=== PATIENT | male | born 1970 | race Caucasian/White ===

== ENCOUNTER 2022-04-28 18:07 | Emergency (ER) | payer BC ==
[~2022-04-28] VITALS: Ht 177 cm; Wt 74.0 kg
[2022-04-28] MEDS ORDERED: fentaNYL INJ 100 MCG/2 ML AMP IVP ONE (18:30)
[2022-04-28] MEDS ORDERED: LIDOCAINE 1% INJ 20 ML VIAL INJ ONE (18:30)
[2022-04-28] MEDS ORDERED: NS IV 1000 ML 1,000 ML IV SCH ×2 (18:30→20:00)
[2022-04-28 18:38] LABS: BASOPHILS % (AUTO) 0 % (0-10); EOSINOPHILS % (AUTO) 0 % (0-10); HEMATOCRIT 45 % (40-54); HEMOGLOBIN 15.9 g/dL (13.3-17.7); LYMPHOCYTES # (AUTO) 0.7 10^3/uL (1.0-4.0); LYMPHOCYTES % (AUTO) 9 % (12-44); MEAN CORPUSCULAR HEMOGLOBIN 31 pg (25-34); MEAN CORPUSCULAR HGB CONC 35 g/dL (32-36); MEAN CORPUSCULAR VOLUME 89 fL (80-99); MEAN PLATELET VOLUME 9.7 fL (9.0-12.2); MONOCYTES # (AUTO) 0.8 10^3/uL (0.0-1.0); MONOCYTES % (AUTO) 10 % (0-12); NEUTROPHILS # (AUTO) 6.5 10^3/uL (1.8-7.8); NEUTROPHILS % (AUTO) 81 % (42-75); PLATELET COUNT 216 10^3/uL (130-400)
[2022-04-28] MEDS ORDERED: SODIUM BICARB 8.4% 50 MEQ/50 ML (ABBOTT) SYR INJ ONE (18:45)
[2022-04-28 18:59] LABS: ALBUMIN 4.1 GM/DL (3.2-4.5)
[2022-04-28 19:00] LABS: POTASSIUM 5.1 MMOL/L (3.6-5.0)
[2022-04-28 19:01] LABS: CALCIUM 8.8 MG/DL (8.5-10.1)
[2022-04-28 19:02] LABS: TOTAL PROTEIN 7.4 GM/DL (6.4-8.2)
[2022-04-28 19:04] LABS: BILIRUBIN,TOTAL 0.7 MG/DL (0.1-1.0)
[2022-04-28 19:05] LABS: CREATININE SERUM 1.14 MG/DL (0.60-1.30)
[2022-04-28 19:08] LABS: MAGNESIUM 1.7 MG/DL (1.6-2.4)
[2022-04-28] MEDS ORDERED: ceFAZolin INJECTION 2,000 MG in NS (IVPB) 50 ML IV ONE (19:45)
--- NOTE | 2022-04-28 21:45 | Diagnostic Imaging Report ---
PROCEDURE: CT head, face, and cervical spine without contrast. TECHNIQUE: Multiple contiguous axial images were obtained through the head, neck, and facial bones without the use of intravenous contrast. Sagittal and coronal reformations through the cervical spine and facial bones were also performed. Auto Exposure Controls were utilized during the CT exam to meet ALARA standards for radiation dose reduction. INDICATION: Trauma, fall, pain, laceration. COMPARISON: None available. FINDINGS: No intracranial hemorrhage. No intracranial mass, mass effect, midline shift, herniation, hydrocephalus or extra-axial fluid collection. No CT evidence of an acute ischemic infarction. The orbits are unremarkable. Subcutaneous fat stranding with associated soft tissue gas is noted superior to the left ear. Mucosal thickening within the bilateral maxillary sinuses. Scattered mucosal thickening and fluid within the scattered ethmoidal air cells. The mastoid air cells are clear. The calvarium is intact. Mucosal thickening and fluid within scattered ethmoidal air cells. Mucosal thickening and fluid within the left sphenoid sinus. Mild mucosal thickening within the bilateral maxillary sinuses. The zygomatic arches are intact. No temporomandibular joint dislocation. The pterygoids are intact. No acute facial fracture. The orbits are unremarkable. Periventricular fat is symmetrically well-maintained. No focal fluid collection. The airway is patent. [place] left curvature of the visualized cervicothoracic spine. No significant anterolisthesis or retrolisthesis. Alignment of the atlantooccipital joint is well maintained. Vertebral body heights are well-maintained. No acute fracture or dislocation. No destructive osseous process. No severe disc space height loss. No apical pneumothorax. The paraspinal soft tissues are unremarkable. IMPRESSION: No acute intracranial abnormality. Laceration involving the left temporal scalp superior to the left ear. Paranasal sinus disease without acute facial fracture. No acute osseous abnormality within the cervical spine with curvature of the spine and low-grade degenerative changes present. Dictated by: Dictated on workstation # [id number]
[2022-04-28] MEDS ORDERED: RX-OSELTAMIVIR 75 MG (TAMIFLU) BOX OF 10 PO STA (21:49)
[2022-04-28] MEDS ORDERED: HYDROcodone/APAP 5 MG/325 MG (LORTAB) TAB PO ONE (22:00)
[2022-04-28] MEDS ORDERED: ONDANSETRON 4 MG/2 ML (SDV) Z0FRAN IVP ONE (22:00)
[2022-04-28] MEDS ORDERED: TRIM/SULFAMETH 160/800 (SEPTRA DS) TAB PO ONE (22:00)
[2022-04-28] MEDS ORDERED: MUPIROCIN 2% OINT 22 GM (BACTROBAN) TUBE ONE (22:00)
[2022-04-28] MEDS ORDERED: TETANUS,DIPTH,PERTUSS P/F (BOOSTRIX) 0.5 ML VIAL IM ONE (22:00)
[2022-04-28 22:45] VITALS: BP 128/68
[2022-04-28] MEDS ORDERED: ACHD5005 PO (22:52)
[2022-04-28] MEDS ORDERED: CEPH500T PO (22:52)
[2022-04-28] MEDS ORDERED: SULF1TAB38 PO (22:52)
[2022-04-28] MEDS ORDERED: ONDA4TAB11 SL (22:58)
--- NOTE | 2022-04-28 22:58 | ED General ---
General Chief Complaint: Dizziness/Syncope Stated Complaint: FALL/EAR LAC Nursing Triage Note: ARRIVED VIA AMB TO ROOM 03. STATES HE PASSED OUT AFTER HIS SHOWER CAUSING A LACERATION TO HIS LEFT EAR. WHEN HE GOT UP HE PASSED OUT AGAIN. DENIES NECK PAIN. PT STATES HE HAS BEEN SICK WITH RESP ISSUES RECENTLY. Source of Information: Patient Exam Limitations: No Limitations History of Present Illness Date Seen by Provider: Apr 28, 2022 Time Seen by Provider: 18:15 Initial Comments This 52-year-old gentleman presents to the emergency room with primary complaint of partial left ear amputation after he struck his head on a vanity when he had a syncopal episode getting out of the shower. He has not felt well the past 3 days, complaining of cough, congestion, and diarrhea. He is a type I diabetic but reports blood sugars have been fairly well controlled. He was not hypoglycemic today. He does not have any prior history of syncopal episodes. He denies shortness of breath or chest pain. He has been lightheaded. The top half of his left ear is dangling by a thin piece of tissue. Allergies and Home Medications Allergies Coded Allergies: No Known Drug Allergies (Unverified , 04/28/22) Patient Home Medication List Home Medication List Reviewed: Yes Cephalexin (Cephalexin) 500 Mg Tablet, 500 MG PO TID Prescribed by: PIERRE PADRON on 04/28/222251 Hydrocodone/Acetaminophen (Hydrocodone-Acetamin 5-325 mg) 5 Mg-325 Mg Tablet, 1 TAB PO Q4H PRN for PAIN-MODERATE (5-7) Prescribed by: PIERRE PADRON on 04/28/222252 Ondansetron (Ondansetron Odt) 4 Mg Tab.rapdis, 4 MG SL Q4H PRN for NAUSEA/VOMITING Prescribed by: PIERRE PADRON on 04/28/222257 Sulfamethoxazole/Trimethoprim (Bactrim Ds Tablet) 1 Each Tablet, 1 EACH PO BID Prescribed by: PIERRE PADRON on 04/28/222251 Review of Systems Review of Systems Constitutional: weakness EENTM: see HPI Respiratory: no symptoms reported Cardiovascular: see HPI, syncope Gastrointestinal: see HPI, diarrhea Genitourinary: no symptoms reported Musculoskeletal: no symptoms reported Skin: see HPI Psychiatric/Neurological: See HPI Hematologic/Lymphatic: No Symptoms Reported Immunological/Allergic: no symptoms reported Past Rfmaspa-Hwvglm-Cvmxjl Hx Patient Social History Tobacco Use?: No Substance use?: No Alcohol Use?: No Immunizations Up To Date Second COVID19 Vaccination Moises: UNKNOWN COVID19 Vaccine 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 oz. kg; 23.00 BMI Method: General Appearance: WD/WN, Mild Distress HEENT: PERRL/EOMI, Other (Contusions and abrasions on the left face especially in the periorbital region. Near complete amputation of the top half of the left ear. The bulk of the amputated tissue is cyanotic and tissue is denuded of skin. The more proximal portion of the amputated tissue appears pink. There is minor oozing of blood.) Neck: Normal Inspection, Non Tender Respiratory: Lungs Clear, Normal Breath Sounds, No Accessory Muscle Use Cardiovascular: Regular Rate, Rhythm, No Edema, No Murmur Gastrointestinal: Non Tender, Soft Extremity: Normal Inspection, No Pedal Edema Neurologic/Psychiatric: Alert, Oriented x3, No Motor/Sensory Deficits, Normal Mood/Affect, body sander II-XII Norm as Tested Skin: Normal Color, Warm/Dry Procedures/Interventions Wound Location: Ears Other Wound Location Left area near complete amputation Wound Length (cm): 9 Wound's Depth, Shape: irregular, flap (Through cartilage), contused tissue, sub Q Wound Explored: clean Irrigated w/ Saline (ccs): 300 Betadine Prep?: Yes Anesthesia: 1% Lidocaine Volume Anesthetic (ccs): 10 Suture: Vicryl Suture Size: 3-0 Number of Sutures: 10 Sterile Dressing Applied?: Yes Progress Wound was sprayed with lidocaine. Digital block was injected around the ear. Wound was then irrigated with saline and chlorhexidine and then rinsed with saline. The large nonviable flap of tissue was trimmed away. Skin was prepped with iodine. The thin strip of skin and subcutaneous tissue remaining was tacked down to the lower ear using 3-0 Vicryl suture. Bleeding was controlled. Tissue appeared to remain viable. All exposed cartilage was covered. Bactroban ointment was applied to the wound before dressing. Progress/Results/Core Measures Suspected Sepsis SIRS Temperature: Pulse: 94 Respiratory Rate: 16 Laboratory Tests 04/28/22 18:30: White Blood Count 8.0 Blood Pressure 137 /92 Mean: 107 Laboratory Tests 04/28/22 18:30: Creatinine 1.14, Platelet Count 216, Total Bilirubin 0.7 Results/Orders Lab Results Laboratory Tests Test 04/28/22 18:17 04/28/22 18:30 04/28/22 18:36 Range/Units Glucometer 228 H 70-110 MG/DL White Blood Count 8.0 4.3-11.0 10^3/uL Red Blood Count 5.11 4.30-5.52 10^6/uL Hemoglobin 15.9 13.3-17.7 g/dL Hematocrit 45 40-54 % Mean Corpuscular Volume 89 80-99 fL Mean Corpuscular Hemoglobin 31 25-34 pg Mean Corpuscular Hemoglobin Concent 35 32-36 g/dL Red Cell Distribution Width 12.1 10.0-14.5 % Platelet Count 216 130-400 10^3/uL Mean Platelet Volume 9.7 9.0-12.2 fL Immature Granulocyte % (Auto) 0 % Neutrophils (%) (Auto) 81 H 42-75 % Lymphocytes (%) (Auto) 9 L 12-44 % Monocytes (%) (Auto) 10 0-12 % Eosinophils (%) (Auto) 0 0-10 % Basophils (%) (Auto) 0 0-10 % Neutrophils # (Auto) 6.5 1.8-7.8 10^3/uL Lymphocytes # (Auto) 0.7 L 1.0-4.0 10^3/uL Monocytes # (Auto) 0.8 0.0-1.0 10^3/uL Eosinophils # (Auto) 0.0 0.0-0.3 10^3/uL Basophils # (Auto) 0.0 0.0-0.1 10^3/uL Immature Granulocyte # (Auto) 0.0 0.0-0.1 10^3/uL Sodium Level 129 L 135-145 MMOL/L Potassium Level 5.1 H 3.6-5.0 MMOL/L Chloride Level 93 L 98-107 MMOL/L Carbon Dioxide Level 22 21-32 MMOL/L Anion Gap 14 5-14 MMOL/L Blood Urea Nitrogen 14 7-18 MG/DL Creatinine 1.14 0.60-1.30 MG/DL Estimat Glomerular Filtration Rate 78 BUN/Creatinine Ratio 12 Glucose Level 267 H 70-105 MG/DL Calcium Level 8.8 8.5-10.1 MG/DL Corrected Calcium 8.7 8.5-10.1 MG/DL Magnesium Level 1.7 1.6-2.4 MG/DL Total Bilirubin 0.7 0.1-1.0 MG/DL Aspartate Amino Transf (AST/SGOT) 31 5-34 U/L Alanine Aminotransferase (ALT/SGPT) 21 0-55 U/L Alkaline Phosphatase 71 40-136 U/L Total Protein 7.4 6.4-8.2 GM/DL Albumin 4.1 3.2-4.5 GM/DL Influenza Type A (RT-PCR) Detected H Not Detecte Influenza Type B (RT-PCR) Not Detected Not Detecte SARS-CoV-2 RNA (RT-PCR) Not Detected Not Detecte My Orders Orders - PIERRE CHAMPION MD Lidocaine 1% Inj 20 Ml (Xylocaine 1% Inj (04/28/22 18:30) Cbc With Automated Diff (04/28/22 18:20) Comprehensive Metabolic Panel (04/28/22 18:20) Magnesium (04/28/22 18:20) Ed Iv/Invasive Line Start (04/28/22 18:20) Ekg Tracing (04/28/22 18:20) Monitor-Rhythm Ecg Trace Only (04/28/22 18:20) Ns Iv 1000 Ml (Sodium Chloride 0.9%) (04/28/22 18:30) Covid 19 Inhouse Test (04/28/22 18:20) Influenza A And B By Pcr (04/28/22 18:20) Ct Head/Face/Cervical Wo (04/28/22 18:26) Fentanyl Inj (Sublimaze Injection) (04/28/22 18:30) Sodium Bicarbonate 8.4% Syr (Sodium Bica (04/28/22 18:45) Cefazolin Injection (Ancef Injection) (04/28/22 19:45) Ns Iv 1000 Ml (Sodium Chloride 0.9%) (04/28/22 20:00) Sulfamethoxazole/Trimet Ds Tab (Bactrim (04/28/22 22:00) Hydrocodone/Apap 5/325 Tablet (Lortab 5 (04/28/22 22:00) Mupirocin Ointment (Bactroban Ointment (04/29/22 09:00) Dipht,Pertuss(Acell),Tet Adult (Boostrix (04/28/22 22:00) Rx-Oseltamivir Caps (Rx-Tamiflu Caps) (04/28/22 21:49) Ondansetron Injection (Zofran Injectio (04/28/22 22:00) Mupirocin Ointment (Bactroban Ointment (04/28/22 22:00) Medications Given in ED Current Medications Medications Dose Ordered Sig/Aman Route Start Time Stop Time Status Last Admin Dose Admin Acetaminophen/ Hydrocodone Bitart 1 ea ONCE ONCE PO 04/28/22 22:00 04/28/22 22:01 DC 04/28/22 22:03 1 EA Cefazolin Sodium 2000 mg/Sodium Chloride 50 ml @ 100 mls/hr ONCE ONCE IV 04/28/22 19:45 04/28/22 20:14 DC 04/28/22 20:09 100 MLS/HR Diphtheria/ Tetanus/Acell Pertussis 0.5 ml ONCE ONCE IM 04/28/22 22:00 04/28/22 22:01 DC 04/28/22 21:58 0.5 ML Ondansetron HCl 4 mg ONCE ONCE IVP 04/28/22 22:00 04/28/22 22:01 DC 04/28/22 22:03 4 MG Trimethoprim/ Sulfamethoxazole 1 ea ONCE ONCE PO 04/28/22 22:00 04/28/22 22:01 DC 04/28/22 22:02 1 EA Vital Signs/I&O 04/28/22 04/28/22 18:08 22:45 Temp 36.3 Pulse 94 72 Resp 16 20 B/P (MAP) 137/92 (107) 128/68 Pulse Ox 97 98 O2 Delivery Room Air Room Air 04/29/22 00:00 Intake Total 1000 ml Balance 1000 ml Capillary Refill : Less Than 3 Seconds Blood Pressure Mean: 107 Point of Care Testing Finger Stick Blood Glucose: 228 Blood Glucose Action Taken: PHYSICIAN NOTIFIED Progress Note : Progress Note Patient tested positive for influenza A. He was hydrated with 2 L of IV normal saline. Hyponatremia was noted. I discussed the case with Dr. Lance. He advised revising the amputation by completely trimming away the nonviable portions. After doing so there was a thin strip of skin still viable but at risk due to the thin nature of the tissue. Additionally, the inferior portion of the ear had exposed cartilage and a deep hole above the ear. This area was at risk for infection and tissue damage. Therefore, the narrow strip of skin was tacked down to the lower ear to cover the cartilage and protect as much skin as possible for possible revision surgery. 10 sutures of 3-0 Vicryl were used to tack down the flap of skin. Patient was treated with Ancef and Bactrim for infection prophylaxis. Boostrix tetanus immunization was administered. Pain was treated with fentanyl and hydrocodone. No definite cause of his syncope was identified but he likely was hypovolemic from his recent diarrhea as well as hyponeutropenic. These issues likely led to his syncope. Tamiflu was initiated due to to influenza in this high-risk patient. After treatment, patient was able to stand and ambulate without any symptoms. He was ultimately discharged home for outpatient follow-up, particularly with Dr. Lance. Wound was dressed with Bactroban and gauze dressing. ECG Initial ECG Impression Date: Apr 28, 2022 Initial ECG Impression Time: 18:32 Initial ECG Rate: 88 Comment Sinus rhythm with no ST elevation or depression. Right bundle branch block and right axis deviation. Diagnostic Imaging Diagonstic Imaging: CT Plain Films/CT/US/NM/MRI: facial bones, c-spine, head Comments NAME: VINCENTHELEN Harjit MED REC#: [id number] PT STATUS: REG ER : 1970 PHYSICIAN: PIERRE CHAMPION MD ADMIT DATE: 04/28/22/ER Signed Date of Exam:04/28/22 CT HEAD/FACE/CERVICAL WO PROCEDURE: CT head, face, and cervical spine without contrast. TECHNIQUE: Multiple contiguous axial images were obtained through the head, neck, and facial bones without the use of intravenous contrast. Sagittal and coronal reformations through the cervical spine and facial bones were also performed. Auto Exposure Controls were utilized during the CT exam to meet ALARA standards for radiation dose reduction. INDICATION: Trauma, fall, pain, laceration. COMPARISON: None available. FINDINGS: No intracranial hemorrhage. No intracranial mass, mass effect, midline shift, herniation, hydrocephalus or extra-axial fluid collection. No CT evidence of an acute ischemic infarction. The orbits are unremarkable. Subcutaneous fat stranding with associated soft tissue gas is noted superior to the left ear. Mucosal thickening within the bilateral maxillary sinuses. Scattered mucosal thickening and fluid within the scattered ethmoidal air cells. The mastoid air cells are clear. The calvarium is intact. Mucosal thickening and fluid within scattered ethmoidal air cells. Mucosal thickening and fluid within the left sphenoid sinus. Mild mucosal thickening within the bilateral maxillary sinuses. The zygomatic arches are intact. No temporomandibular joint dislocation. The pterygoids are intact. No acute facial fracture. The orbits are unremarkable. Periventricular fat is symmetrically well-maintained. No focal fluid collection. The airway is patent. [place] left curvature of the visualized cervicothoracic spine. No significant anterolisthesis or retrolisthesis. Alignment of the atlantooccipital joint is well maintained. Vertebral body heights are well-maintained. No acute fracture or dislocation. No destructive osseous process. No severe disc space height loss. No apical pneumothorax. The paraspinal soft tissues are unremarkable. IMPRESSION: No acute intracranial abnormality. Laceration involving the left temporal scalp superior to the left ear. Paranasal sinus disease without acute facial fracture. No acute osseous abnormality within the cervical spine with curvature of the spine and low-grade degenerative changes present. Dictated by: Dictated on workstation # [id number] Dict: 04/28/222132 Trans: 04/28/222205 [facility] [id number] Interpreted by: ANNALISE NEWBY MD Electronically signed by: ANNALISE NEWBY MD 04/28/222205 Departure Impression Primary Impression: Syncope and collapse Additional Impressions: Traumatic amputation of left ear Qualified Codes: S08.112A - Complete traumatic amputation of left ear, initial encounter Facial contusion Qualified Codes: S00.83XA - Contusion of other part of head, initial encounter Influenza A Hypovolemia Hyponatremia Disposition: 01 HOME, SELF-CARE Condition: Improved Departure-Patient Inst. Decision time for Depature: 22:50 Referrals: GARETH LANCE MD NO,LOCAL PHYSICIAN (PCP) Primary Care Physician Patient Instructions: Laceration Repair With Stitches ED, Syncope (Fainting) Add. Discharge Instructions: Drink plenty of clear liquids and eat a well balanced diet. Check your blood sugars often, preferably fasting in the morning and 2 hours after meals. For mild pain or fever you may take Tylenol (acetaminophen) up to 1000 mg every 6 hours as needed. For more intense pain take hydrocodone as prescribed. Please be aware that hydrocodone has 325 mg acetaminophen (Tylenol) in each tablet. Also, hydrocodone may cause drowsiness, so use with caution. Do not drive or operate machinery on hydrocodone. Hydrocodone may also cause constipation, so you may wish to use a stool softener such as Colace while on it. Gently apply a thin layer of the Bactroban antibiotic ointment to the laceration and stitches twice daily with dressing changes. Keep covered when active, sleeping, or in dirty environments. Also keep covered until drainage stops. If dressing sticks to the ear, moistened with a small amount of tap water and allow to sit for several minutes before removing the dressing. Complete your antibiotics as prescribed. Complete the entire 10 doses of Tamiflu as prescribed even if you are feeling better before the 10 doses are complete. Contact Dr. Lance's office tomorrow for a follow-up appointment time. Monitor for signs of infection such as increasing redness, increasing swelling, puslike drainage, or fever. Return to care promptly if you notice the symptoms. Do not shower your head for the next 72 hours. After 72 hours you may allow soap and water to run over the ear but do not scrub directly on the ear. Do not submerge until cleared by Dr. Lance. Because you have influenza A, isolate to avoid infecting others until you are free of fever for at least 24 hours without any fever reducing medications. Follow-up with your primary care provider soon as possible regarding your sy ncopal episode (passing out). Return to the ER if you have any worsening of symptoms despite following these instructions. All discharge instructions reviewed with patient and/or family. Voiced understanding. Scripts Ondansetron (Ondansetron Odt) 4 Mg Tab.rapdis 4 MG SL Q4H PRN for NAUSEA/VOMITING, #10 TAB Prov: PIERRE CHAMPION MD 04/28/22 Hydrocodone/Acetaminophen (Hydrocodone-Acetamin 5-325 mg) 5 Mg-325 Mg Tablet 1 TAB PO Q4H PRN for PAIN-MODERATE (5-7), #30 TAB Prov: PIERRE CHAMPION MD 04/28/22 Cephalexin (Cephalexin) 500 Mg Tablet 500 MG PO TID, #20 TAB Prov: PIERRE CHAMPION MD 04/28/22 Sulfamethoxazole/Trimethoprim (Bactrim Ds Tablet) 1 Each Tablet 1 EACH PO BID, #14 TAB Prov: PIERRE CHAMPION MD 04/28/22 Work/School Note: Work Release Form Date Seen in the Emergency Department: Apr 28, 2022 Return to Work: May 01, 2022 Restrictions: Return-No Fever (24hrs), Return-No Vomiting(24hrs) Copy Copies To 1: GARETH LANCE MD, JOSHUA T MD Apr 28, 2022 22:58
[2022-04-29] MEDS ORDERED: MUPIROCIN 2% OINT 22 GM (BACTROBAN) TUBE TOP SCH (09:00)
== END 2022-04-28 23:00 | disposition home or self-care (01) ==
LOC: EDUNIT# 18:07 → ER 18:09
DX: S08.112A Complete traumatic amputation of left ear, initial encounter (principal); S05.12XA Contusion of eyeball and orbital tissues, left eye, initial encounter; J10.1 Influenza due to other identified influenza virus with other respiratory manifestations; E87.1 Hypo-osmolality and hyponatremia; E86.1 Hypovolemia; R55 Syncope and collapse; Z20.822 Contact with and (suspected) exposure to COVID-19; Z23 Encounter for immunization; W22.8XXA Striking against or struck by other objects, initial encounter
CPT/HCPCS: 36415; 70450; 70486; 72125; 80053; 82947; 83735; 85025; 87636; 90715; 93005; 93041

== ENCOUNTER → 2022-05-14 | Outpatient (CLI) | payer BC ==
[~2022-05-14] VITALS: Ht 177.8 cm; Wt 74.0 kg
[~2022-05-14] MED LIST: ACHD5005 PO; CEPH500T PO; ENAL20TA16 PO; INSU100V SQ; ONDA4TAB11 SL; SULF1TAB38 PO; [UNRECOGNIZED DRUG - SUPPLY]
== END ==
LOC: PREOP 05:44
PROVIDERS: ATTEND Otolaryngology Otolaryngology/Facial Plastic Surgery
DX: Z01.818 Encounter for other preprocedural examination (principal); S01.312A Laceration without foreign body of left ear, initial encounter; X58.XXXA Exposure to other specified factors, initial encounter

== ENCOUNTER 2022-05-21 10:03 | Day surgery (SDC) | payer BC ==
[2022-05-21] VITALS (12 sets, daily range): BP systolic 81–142; BP diastolic 53–82
[~2022-05-21] VITALS: Ht 177.8 cm; Wt 74.0 kg
[2022-05-21] MEDS ORDERED: LIDOCAINE/EPI 1%-1:100,000 (XYLOCAINE) 30ML ONE (12:03)
[2022-05-21] MEDS ORDERED: MUPIROCIN 2% OINT 22 GM (BACTROBAN) TUBE ONE (12:03)
[2022-05-21] MEDS ORDERED: LIDOCAINE PF 2% 5 ML (XYLOCAINE) VIAL ONE (12:09)
[2022-05-21] MEDS ORDERED: MIDAZOLAM 2 MG/2 ML (VERSED) VIAL ONE (12:09)
[2022-05-21] MEDS ORDERED: proPOfol 200 MG/20 ML (DIPRIVAN) VIAL IV ONE (12:09)
[2022-05-21] MEDS ORDERED: fentaNYL INJ 100 MCG/2 ML AMP ONE (12:09)
[2022-05-21] MEDS ORDERED: ONDANSETRON 4 MG/2 ML (SDV) Z0FRAN ONE (12:09)
[2022-05-21] MEDS ORDERED: SEVOFLURANE (ULTANE) 15 ML INHAL SOLN ONE (12:09)
--- NOTE | 2022-05-21 12:09 | Progress Note-Pre Operative ---
Pre-Operative Progress Note Date of Available H&P: May 21, 2022 Date H&P Reviewed: May 21, 2022 Time H&P Reviewed: 11:30 History & Physical: H&P Reviewed, Patient Examed, No changes noted Changes from last HP none Pre-Operative Diagnosis: Tonsils GARETH SHARMA MD May 21, 2022 12:09
[2022-05-21] MEDS ORDERED: LACTATED RINGERS 1,000 ML IV PRN (12:45)
--- NOTE | 2022-05-21 12:55 | Progress Note-Post Operative ---
Post-Operative Progess Note Surgeon (s)/Linux Kernel Developer (s) Surgeon GARETH SHARMA MD Linux Kernel Developer n/a Pre-Operative Diagnosis Tonsils Post-Operative Diagnosis same Post-Op Procedure Note Date of Procedure: May 21, 2022 Name of Procedure Performed: Repair of Traumatic Defect Left Auricle-Complex, Local Inferior Based Advancement Flap Description & Findings Description and Findings: n/a Anesthesia Type lma Estimated Blood Loss minimal Packing none. Specimen(s) collected/removed none GARETH SHARMA MD May 21, 2022 12:55
[2022-05-21] MEDS ORDERED: ACETAMINOPHEN 325 MG TABLET PO PRN (13:00)
[2022-05-21] MEDS ORDERED: HYDROcodone/APAP 5 MG/325 MG (LORTAB) TAB PO PRN (13:00)
--- NOTE | 2022-05-21 14:03 | Anesthesia-General Post-Op ---
General Patient Condition Mental Status/LOC: Same as Preop Cardiovascular: Satisfactory Nausea/Vomiting: Absent Respiratory: Satisfactory Pain: Controlled Complications: Absent Post Op Complications Complications None Follow Up Care/Instructions Patient Instructions None needed. Anesthesia/Patient Condition Patient Condition Patient is doing well, no complaints, stable vital signs, no apparent adverse anesthesia problems. No complications reported per nursing. SHE HARTMAN CRNA May 21, 2022 14:03
[2022-05-21] MEDS ORDERED: MEPERIDINE (DEMEROL) INJ 50 MG/ML IVP ONE (14:15)
[2022-05-21] MEDS ORDERED: ONDANSETRON 4 MG/2 ML (SDV) Z0FRAN IVP PRN (14:15)
[2022-05-21] MEDS ORDERED: morphine INJ 10 MG/ML 1ML (SYR OR VIAL) IVP ONE (14:15)
[2022-05-21] MEDS ORDERED: ACHD5005 PO (15:07)
[2022-05-21] MEDS ORDERED: CEPH500T PO (15:07)
== END 2022-05-21 16:00 | disposition home or self-care (01) ==
LOC: SDC 10:03
PROVIDERS: ATTEND Otolaryngology Otolaryngology/Facial Plastic Surgery
DX: H61.112 Acquired deformity of pinna, left ear (principal)
CPT/HCPCS: 87081